=== PATIENT | female | born 1960 | race Caucasian/White ===

== ENCOUNTER → 2017-05-03 | Outpatient (CLI) | payer BC, OTHER ==
[2017-05-03 13:13] LABS: Basophils # (auto) 0 uL; Basophils % (auto) 0.3 % (0.0-2.0); Eosinophils # (auto) 0 uL; Eosinophils % (auto) 0.7 % (0.0-7.0); Hematocrit 39.6 % (36.0-46.0); Hemoglobin 13.4 g/dL (12.2-16.2); Lymphocytes # (auto) 2.3 uL; Lymphocytes % (auto) 32.6 % (10.0-50.0); Monocytes # (auto) 0.5 uL; Monocytes % (auto) 6.8 % (0.0-12.0); Neutrophils # (auto) 4.2 uL; Neutrophils % (auto) 59.6 % (37.0-80.0); Nucleated Red Blood Cells % 0.8 %
[2017-05-03 13:14] LABS: Mean Corpuscular Hemoglobin 31.2 pg (28.0-32.0); Mean Corpuscular Hgb Conc. 33.9 g/dL (32.0-36.0); Mean Platelet Volume 8.1 fL (6.9-10.8); Platelet Count (auto) 316 10^3/uL (140-450); Red Cell Distribution Width 12.6 % (11.8-14.3)
[2017-05-03 15:56] LABS: Albumin 4.1 g/dL (3.4-5.0); BUN/Creatinine Ratio 28.8; Bilirubin, Total 0.2 mg/dL (0.2-1.0); Calcium 9.5 mg/dL (8.5-10.1); Potassium 4.3 mmol/L (3.5-5.1); Total Protein 8.1 g/dL (6.4-8.2); Uric Acid 3.6 mg/dL (2.6-6.0)
== END | disposition home or self-care (01) ==
LOC: Rad HDHVI 08:06
PROVIDERS: ATTEND Internal Medicine Cardiovascular Disease
DX: M18.12 Unilateral primary osteoarthritis of first carpometacarpal joint, left hand (principal); E78.00 Pure hypercholesterolemia, unspecified; I10 Essential (primary) hypertension; M10.9 Gout, unspecified; D64.9 Anemia, unspecified; R70.0 Elevated erythrocyte sedimentation rate
CPT/HCPCS: 36415; 73130; 80053; 80061; 84550; 85025; 85652; 86431

== ENCOUNTER → 2019-11-18 | Outpatient (CLI) | payer OTHER ==
[2019-11-18 12:00] LABS: Basophils # (auto) 0 10 ^3/uL (0-0.2); Basophils % (auto) 0.5 % (0.0-2.0); Eosinophils # (auto) 0.1 10 ^3/uL (0-0.8); Hematocrit 41.6 % (36.0-46.0); Hemoglobin 13.4 g/dL (12.2-16.2); Lymphocytes # (auto) 2.3 10 ^3/uL (0.4-5.4); Lymphocytes % (auto) 37.2 % (10.0-50.0); Mean Corpuscular Hgb Conc. 32.2 g/dL (32.0-36.0); Monocytes # (auto) 0.5 10 ^3/uL (0-1.3); Monocytes % (auto) 8.4 % (0.0-12.0); Neutrophils # (auto) 3.3 10 ^3/uL (1.6-8.6); Neutrophils % (auto) 52.9 % (37.0-80.0); Nucleated Red Blood Cells % 0.3 %; Platelet Count (auto) 336 10^3/uL (140-450); Red Blood Cells 4.47 10^6/uL (4.0-5.20); Red Cell Distribution Width 13.7 % (11.8-14.3); White Blood Cell 6.3 10^3/uL (4.4-10.8)
[2019-11-18 12:03] LABS: Urine Blood Negative /uL (Negative); Urine Specific Gravity 1.031 (1.001-1.035)
[2019-11-18 12:11] LABS: Potassium 3.8 mmol/L (3.5-5.1)
[2019-11-18 12:17] LABS: Albumin 3.8 g/dL (3.4-5.0); BUN/Creatinine Ratio 26.6; Bilirubin, Total 0.4 mg/dL (0.2-1.0); Total Protein 7.5 g/dL (6.4-8.2)
[2019-11-18 12:21] LABS: Free T4 (Free Thyroxine) 1.05 ng/dL (0.89-1.76)
== END | disposition home or self-care (01) ==
LOC: LAB 07:49
PROVIDERS: ATTEND Internal Medicine
DX: Z00.00 Encounter for general adult medical examination without abnormal findings (principal); E03.9 Hypothyroidism, unspecified; K90.9 Intestinal malabsorption, unspecified; N39.0 Urinary tract infection, site not specified; D51.9 Vitamin B12 deficiency anemia, unspecified; Z79.899 Other long term (current) drug therapy
CPT/HCPCS: 36415; 80053; 80061; 81003; 82306; 82607; 83036; 84439; 84443; 85025

== ENCOUNTER → 2020-05-09 | Outpatient (CLI) | payer OTHER ==
[2020-05-09 12:21] LABS: Albumin 3.9 g/dL (3.4-5.0)
[2020-05-09 12:26] LABS: Alanine Aminotransferase 39 U/L (13-56); Alkaline Phosphatase 74 U/L (45-117); Aspartate Aminotransferase 27 U/L (15-37); Bilirubin, Direct < 0.1 mg/dL (0-0.2); Bilirubin, Total 0.3 mg/dL (0.2-1.0); Cholesterol 215 mg/dL (< 200); HDL Cholesterol 64 mg/dL (40-59); LDL Cholesterol 134 mg/dL (< 100); Total Protein 7.5 g/dL (6.4-8.2); Triglycerides 85 mg/dL (< 150)
== END | disposition home or self-care (01) ==
LOC: LAB 09:13
PROVIDERS: ATTEND Internal Medicine
DX: E78.00 Pure hypercholesterolemia, unspecified (principal)
CPT/HCPCS: 36415; 80061; 80076